=== PATIENT | male | born 1995 | race Caucasian/White ===

== ENCOUNTER 2018-12-26 07:21 | Emergency (ER) | payer SELFPAY ==
[2018-12-26 08:09] VITALS: BP 168/89
[2018-12-26] MEDS ORDERED: Lidocaine 2% W/EPI 1:100,000* 20 ML MDV INJ ONE (08:16)
[2018-12-26] MEDS ORDERED: Tetan/Diph/Pertus SYR(Tdap)* 0.5 ML SYR(BOOSTRIX) use SYR IM ONE (08:54)
--- NOTE | 2018-12-26 09:19 | UC ---
Laceration HPI - HPI Summary HPI Summary: laceration right knee x 2 hrs ago s/p fall this morning on his knee, large laceration on the right knee + flap , bleeding - History Of Current Complaint Chief Complaint: UCLaceration Stated Complaint: RIGHT KNEE LACERATION Time Seen by Provider: 12/26/18 08:01 Hx Obtained From: Patient Laceration Location: Knee - right knee Mechanism Of Injury: Blunt Trauma Onset/Duration: Sudden Onset, Lasting Hours - 2, Still Present Severity: Moderate Pain Intensity: 7 Aggravating Factors: Movement Full Body (No Head): 1 - 5 cm laceration of the right knee - Allergies/Home Medications Allergies/Adverse Reactions: Allergies Allergy/AdvReac Type Severity Reaction Status Date / Time lamotrigine [From Lamictal] Allergy Severe Swelling Verified 12/26/18 08:01 of face and lips and throat PMH/Surg Hx/FS Hx/Imm Hx - Additional Past Medical History Additional PMH: ADD, bipolar - has not taken meds for years Respiratory History: Asthma Psychological History: Bipolar Disorder - Surgical History Surgical History: Yes Surgery Procedure, Year, and Place: left knee miniscus repair - Family History Known Family History: Positive: None Negative: Diabetes - Social History Alcohol Use: None Substance Use Type: None Smoking Status (MU): Never Smoked Tobacco - Immunization History Most Recent Tetanus Shot: pt not sure Review of Systems All Other Systems Reviewed And Are Negative: Yes Constitutional: Positive: Negative Eyes: Positive: Negative ENT: Positive: Negative Respiratory: Positive: Negative Is Patient Immunocompromised?: No Physical Exam Triage Information Reviewed: Yes Appearance: Well-Appearing, No Pain Distress, Obese Vital Signs: Initial Vital Signs Temp 97.4 F 12/26/18 08:01 Pulse 75 12/26/18 08:01 Resp 18 12/26/18 08:01 BP 168/89 12/26/18 08:01 Pulse Ox 99 12/26/18 08:01 Vital Signs Reviewed: Yes Eyes: Positive: Conjunctiva Clear ENT: Positive: Normal ENT inspection, Hearing grossly normal, Pharynx normal Neck: Positive: Supple, Nontender, No Lymphadenopathy Respiratory: Positive: Chest non-tender, Lungs clear, Normal breath sounds Cardiovascular: Positive: RRR, No Murmur, Pulses Normal Skin: Positive: Other - laceration right knee, deep , 5 cm in length with a flap , + bleeding Laceration Repair - Laceration Repair 1 Description: Linear Laceration Size After Repair: Length (cm) - 5, Width (mm) - 4 Modified For Repair: No Type Injection: Local Anesthesia Used: 2.0% Lido - 10 ml Additive Used (in ml): Epi Cleansing Completed Via Routine Prep: Yes Irrigation With Pressure Irrigation Device: Yes Closure Material: Sutures Closure Method: Single Layer Suture Of: Skin Suture Type: Nylon - 4.0 nylon x 10 Laceration Course/Dx - Diagnosis Provider Diagnosis: Laceration of right knee Discharge - Sign-Out/Discharge Documenting (check all that apply): Patient Departure All imaging exams completed and their final reports reviewed: No Studies - Discharge Plan Condition: Stable Disposition: HOME Patient Education Materials: Laceration (ED) Referrals: Justin May MD [Primary Care Provider] - 7 Days Additional Instructions: follow up in 10 days for suture removal - Billing Disposition and Condition Condition: STABLE Disposition: Home
== END 2018-12-26 09:16 | disposition home or self-care (01) ==
LOC: UCCORT 07:21
DX: S81.011A Laceration without foreign body, right knee, initial encounter (principal); W19.XXXA Unspecified fall, initial encounter; Y92.9 Unspecified place or not applicable; Z23 Encounter for immunization; F98.8 Other specified behavioral and emotional disorders with onset usually occurring in childhood and adolescence; J45.909 Unspecified asthma, uncomplicated; F31.9 Bipolar disorder, unspecified; Z88.8 Allergy status to other drugs, medicaments and biological substances
CPT/HCPCS: 12002; 90471; 90715; 99211; G0463